=== PATIENT | female | born 1940 | race Two or more races ===

== ENCOUNTER 2019-05-05 08:22 | Outpatient (CLI) | payer OTHER | END 2019-05-05 15:00 | disposition home or self-care (01) | LOC: RAD 08:22 → LAB 08:22 | DX: I10 Essential (primary) hypertension (principal); E11.9 Type 2 diabetes mellitus without complications; E03.8 Other specified hypothyroidism; E78.2 Mixed hyperlipidemia; Z12.11 Encounter for screening for malignant neoplasm of colon; R07.89 Other chest pain; M81.0 Age-related osteoporosis without current pathological fracture; D68.8 Other specified coagulation defects ==

== ENCOUNTER → 2019-05-07 08:47 | Outpatient (CLI) | payer OTHER | END | disposition home or self-care (01) | LOC: EKG 08:47 | DX: I10 Essential (primary) hypertension (principal) ==

== ENCOUNTER 2021-01-15 11:30 | Emergency (ER) | payer OTHER ==
[~2021-01-15] VITALS: Ht 149.9 cm; Wt 68.0 kg
== END 2021-01-15 17:24 | disposition home or self-care (01) ==
LOC: ER 11:30
DX: S43.422A Sprain of left rotator cuff capsule, initial encounter (principal); S46.812A Strain of other muscles, fascia and tendons at shoulder and upper arm level, left arm, initial encounter; M75.52 Bursitis of left shoulder; M79.602 Pain in left arm; X50.0XXA Overexertion from strenuous movement or load, initial encounter; Y93.B2 Activity, push-ups, pull-ups, sit-ups; Y92.89 Other specified places as the place of occurrence of the external cause; Y99.8 Other external cause status

== ENCOUNTER 2022-08-12 13:16 | Emergency (ER) | payer OTHER ==
[~2022-08-12] VITALS: Ht 149.9 cm; Wt 68.0 kg
[2022-08-12] MEDS ORDERED: SYNTHROID100 MCG PO (13:52)
[2022-08-12] MEDS ORDERED: LOSARTAN-HCTZ1 EAC2 PO (13:53)
[2022-08-12] MEDS ORDERED: METFORMIN HCL1000 MG (13:54)
[2022-08-12] MEDS ORDERED: GLIMEPIRIDE4 MG (13:54)
== END 2022-08-12 15:57 | disposition home or self-care (01) ==
LOC: ER 13:16
DX: M54.50 Low back pain, unspecified (principal); E11.9 Type 2 diabetes mellitus without complications; Z79.84 Long term (current) use of oral hypoglycemic drugs; E78.00 Pure hypercholesterolemia, unspecified; E03.9 Hypothyroidism, unspecified; I10 Essential (primary) hypertension

== ENCOUNTER 2024-01-08 21:19 | Emergency (ER) | payer OTHER ==
[~2024-01-08] VITALS: Ht 149.9 cm; Wt 65.8 kg
[~2024-01-08 21:19] MED LIST: GLIMEPIRIDE4 MG; LOSARTAN-HCTZ1 EAC2 PO; METFORMIN HCL1000 MG; SYNTHROID100 MCG PO
[2024-01-08] MEDS ORDERED: SYNTHROID112 MCG PO (21:46)
[2024-01-08] MEDS ORDERED: METOPROLOL SUCC50 MG PO (21:46)
[2024-01-08] MEDS ORDERED: ADULT LOW DOSE81 M1 PO (21:47)
[2024-01-08] MEDS ORDERED: ATORVASTATIN CA20 MG PO (21:47)
[2024-01-08] MEDS ORDERED: HYDROCODONE/CHLORPHEN P-STIREX 5 ML ML PO STA (22:45)
[2024-01-08] MEDS ORDERED: CEFTRIAXONE SODIUM 1,000 MG VIAL IM STA (22:45)
== END 2024-01-09 00:26 | disposition home or self-care (01) ==
LOC: ER 21:20
DX: J06.9 Acute upper respiratory infection, unspecified (principal)
CPT/HCPCS: 96372; 99282; J0696

== ENCOUNTER 2024-06-24 14:25 | Emergency (ER) | payer OTHER ==
[~2024-06-24] VITALS: Ht 149.9 cm; Wt 63.5 kg
[~2024-06-24 14:25] MED LIST changes: +ADULT LOW DOSE81 M1 PO; +ATORVASTATIN CA20 MG PO; +METOPROLOL SUCC50 MG PO; +SYNTHROID112 MCG PO
[2024-06-24 14:49] VITALS: BP 170/73; O2SAT 100
[2024-06-24] MEDS ORDERED: KETOROLAC TROMETHAMINE 60 MG VIAL IM ONE (15:30)
[2024-06-24] MEDS ORDERED: DEXAMETHASONE SODIUM PHOSPHATE 4 MG/ML VIAL IM ONE (15:30)
[2024-06-24] MEDS ORDERED: DICLOFENAC SODI75 MG PO (15:35)
== END 2024-06-24 15:47 | disposition home or self-care (01) ==
LOC: ER 14:27
DX: M54.50 Low back pain, unspecified (principal); I10 Essential (primary) hypertension; E03.8 Other specified hypothyroidism; E11.9 Type 2 diabetes mellitus without complications; Z79.84 Long term (current) use of oral hypoglycemic drugs
CPT/HCPCS: 96372; 99282; J1100; J1885